=== PATIENT | female | born 1975 | race Caucasian/White ===

== ENCOUNTER 2022-06-28 16:16 | Inpatient (IN) | payer MEDICAID, OTHER ==
[~2022-06-28] VITALS: Ht 165.1 cm; Wt 97.1 kg
[~2022-06-28 16:16] MED LIST: ASPI-1856 PO; CARV12.52 PO; FURO-572 PO; LISI20TA29 PO
[2022-06-28 16:29] VITALS: BP 189/138
[2022-06-28] MEDS ORDERED: NITROGLYCERIN 0.4 MG TAB SL ONE (17:25)
--- NOTE | 2022-06-28 17:30 | NUR ---
HUSSAIN SWAB COLLECTED AND WALKED TO LAB
[2022-06-28 17:40] LABS: BASOPHILS # (AUTO) 0.1 K/uL (0.00-0.22); BASOPHILS % (AUTO) 1.3 % (0.0-2.0); EOSINOPHILS # (AUTO) 0.1 K/uL (0-0.4); EOSINOPHILS % (AUTO) 2.7 % (0.0-4.0); HEMATOCRIT 30.4 % (36-48); HEMOGLOBIN 8.9 g/dL (12.0-16.0); LYMPHOCYTES # (AUTO) 1.4 K/uL (2.5-16.5); LYMPHOCYTES % (AUTO) 25.7 % (20.5-51.1); MEAN CORPUSCULAR HEMOGLOBIN 19 pg (27-31); MEAN CORPUSCULAR HGB CONC 29 g/dL (33-37); MEAN CORPUSCULAR VOLUME 64.1 fL (80-94); MONOCYTES # (AUTO) 0.6 K/uL (0.8-1.0); MONOCYTES % (AUTO) 10.9 % (1.7-9.3); NEUTROPHILS # (AUTO) 3.3 K/uL (1.8-7.7); NEUTROPHILS % (AUTO) 59.4 % (42.2-75.2); PLATELET COUNT (AUTO) 457 K/uL (140-450); RED BLOOD CELL COUNT(AUTO) 4.74 MIL/uL (4.20-5.40); RED CELL DISTRIBUTION WIDTH 20.7 % (11.6-13.7); WHITE BLOOD COUNT (AUTO) 5.6 K/uL (4.8-10.8)
[2022-06-28 17:54] LABS: PROTHROMBIN TIME 12.7 secs (10.8-13.4)
[2022-06-28 17:55] LABS: ALBUMIN 2.3 g/dL (3.4-5.0); ANION GAP 11.7 (8-16); CARBON DIOXIDE 27.1 mmol/L (21-32); CREATININE 1.4 mg/dL (0.6-1.3); POTASSIUM 3.8 mmol/L (3.5-5.1)
--- NOTE | 2022-06-28 18:00 | NUR ---
46/F PRESENTS TO ED WITH C/O SOB UPON AMBULATION AND BILATERAL LOWER LEG SWELLING X2 MONTHS WORSENING OVER THE PAST 3 DAYS. PATIENT REPORTS HX OF CHF AND STATES SHE IS "MOSTLY COMPLIANT" WITH MEDICATION. REDNESS AND WEEPING SORES NOTED TO PATIENTS BILATERAL LOWER LEGS. PATIENT DENIES CP, FEVERS, N/V/D, ADMITS TO USE OF METH, LAST USE WAS YESTERDAY.
[2022-06-28] MEDS ORDERED: FUROSEMIDE 100 MG/10 ML VIAL IVP ONE (18:20)
[2022-06-28] MEDS ORDERED: ASPIRIN 81 MG TAB.CHEW PO ONE (18:20)
[2022-06-28] MEDS ORDERED: PRED20TA5 PO (18:42)
[2022-06-28] MEDS ORDERED: POTA10TA70 PO (18:42)
[2022-06-28] MEDS ORDERED: GLIP5TER PO (18:42)
[2022-06-28] MEDS ORDERED: ATOR40TA PO (18:42)
[2022-06-28] MEDS ORDERED: FERR75LI22 PO (18:42)
[2022-06-28] MEDS ORDERED: AMLO10TA PO (18:42)
[2022-06-28] MEDS ORDERED: APIX5TAB PO (18:42)
[2022-06-28] MEDS ORDERED: PHE25S RC (18:42)
[2022-06-28] MEDS ORDERED: SPIR50TA PO (18:42)
--- NOTE | 2022-06-28 18:42 | NUR ---
PATIENT AMBULATED TO RESTROOM WITH STEADY GAIT
[2022-06-28] MEDS ORDERED: ONDANSETRON 4 MG/2 ML VIAL IVP PRN (19:05)
[2022-06-28] MEDS ORDERED: ACETAMINOPHEN 325 MG TAB PO PRN (19:05)
[2022-06-28] MEDS ORDERED: ALBUTEROL 0.083% 2.5 MG/3 ML NEBU INH PRN (19:05)
[2022-06-28] MEDS ORDERED: DEXTROSE 50% 50 ML SYR IVP PRN (19:10)
[2022-06-28] MEDS ORDERED: INSULIN LISPRO SLIDING SCALE 100 UNITS/ML VIAL SUBQ PRN (19:10)
--- NOTE | 2022-06-28 19:23 | NUR ---
Patient noted to have existing wounds upon arrival to ER. Photos taken of wound and placed in chart. Wound covered with dressing. Physician informed.
--- NOTE | 2022-06-28 19:23 | NUR ---
Pt report given to PREM MORRIS. Transfer of care at this time.
[2022-06-28 19:28] LABS: BARBITURATE, URINE NEGATIVE ng/ml (NEG <=200); BENZODIAZEPINE, URINE NEGATIVE ng/mL (NEG <=200); CANNABINOID, URINE NEGATIVE ng/mL (NEG <=50); COCAINE, URINE NEGATIVE ng/mL (NEG <=300); OPIATE, URINE NEGATIVE ng/mL (NEG <=2000); PHENCYCLIDINE SCREEN,URINE NEGATIVE ng/mL (NEG <=25)
--- NOTE | 2022-06-28 20:20 | NUR ---
PT RESTING IN BED IS UP @ [facility] TO BATHROOM WITH STEADY GAIT. PT STATES BEING SOB WHEN WALKING. SP02 99% RESP EVEN AND UNLABORED. 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 ADMITED TO TELE. PENDING BED ASSIG. PT IS A&OX4. SKIN IS WARM AND DRY. ALEX LOWER EXT EDEMA 3+ PITTING. OPEN WOUNDS TO R LOWER LEG. PHOTOS TAKEN. 11/08 PAIN LEVEL .
--- NOTE | 2022-06-28 20:35 | NUR ---
Patient will be admitted to care of DR WOODS. Admited to TELE]. Will go to [id number]. Belongings list completed. Report to MONICA HERNANDEZ.
--- NOTE | 2022-06-28 20:49 | NUR ---
Note undone in EDM - 06/28/22 at 2126 by MNURPM PT RESTING IN BED . IS UP TO BATHROOM WITHOUT ASSIST. GAIT STEADY. PT IS A&OX4 IS ADMITED TO HOSIPTAL. PENDING BED ASSIG. EDEMA 3+ PITTING ALEX. OPEN WOUNDS TO R LOWER LEG. PHOTOS TAKEN . RESP EVEN AND UNLABORED. PT STATES FEELING SOB WHEN WHEN WALKING. SPO2 99% RA.
[2022-06-28] MEDS ORDERED: APIXABAN 2.5 MG TAB PO SCH (21:00)
[2022-06-28] MEDS ORDERED: carvediloL 6.25 MG TAB PO SCH (21:00)
[2022-06-28 21:05] VITALS: BP 188/113
--- NOTE | 2022-06-28 21:05 | NUR ---
RECEIVED PT FROM ER, REQUESTING FOR FOOD. BS CHECKED 46 MG/DL, PROVIDED FOOD. PATIENT IS AWAKE,ALERT AND ORIENTED X 4. DENIES PAIN, DENIES SHORTNESS OF BREATH. SKIN WARM AND DRY TO TOUCH. ORIENTED TO MST ROUTINE, CALL LIGHT GIVEN AND INSTRUCTIONS ON USE PROVIDED. SAFETY PRECAUTION IN PLACE, CALL LIGHT IN REACH. PT AMBULATES WITH STEADY GAIT.
--- NOTE | 2022-06-28 21:20 | NUR ---
BLOOD SUGAR RECHECKED-73 MG/DL.
[2022-06-28] MEDS: lisinopriL 20 MG TAB PO SCH (21:23)
--- NOTE | 2022-06-28 21:28 | NUR ---
The patient's care was reviewed and supervised by Lucy Jett RN.
[2022-06-28] MEDS: BLOOD GLUCOSE MONITORING 1 DEV DEV FS SCH (21:35)
[2022-06-29] VITALS: BP 152/101
--- NOTE | 2022-06-29 00:08 | NUR ---
VITAL SIGNS TAKEN AND DOCUMENTED. DENIES PAIN. CALL LIGHT WITHIN REACH.
--- NOTE | 2022-06-29 02:22 | NUR ---
ROUNDING DONE. PATIENT IS ASLEEP. NO DISTRESS NOTED. CALL LIGHT IN REACH.
[2022-06-29 04:00] VITALS: BP 124/84
[2022-06-29 06:02] LABS: ALBUMIN 2.2 g/dL (3.4-5.0); ANION GAP 9.3 (8-16); CARBON DIOXIDE 29.1 mmol/L (21-32); CREATININE 1.6 mg/dL (0.6-1.3); MAGNESIUM 1.4 mg/dL (1.8-2.4); POTASSIUM 3.4 mmol/L (3.5-5.1); TOTAL BILIRUBIN 0.8 mg/dL (0.0-1.0)
[2022-06-29 06:03] LABS: BASOPHILS # (AUTO) 0.1 K/uL (0.00-0.22); BASOPHILS % (AUTO) 1.1 % (0.0-2.0); EOSINOPHILS # (AUTO) 0.2 K/uL (0-0.4); EOSINOPHILS % (AUTO) 3.9 % (0.0-4.0); HEMATOCRIT 28.7 % (36-48); HEMOGLOBIN 8.7 g/dL (12.0-16.0); LYMPHOCYTES # (AUTO) 1.5 K/uL (2.5-16.5); LYMPHOCYTES % (AUTO) 28.8 % (20.5-51.1); MEAN CORPUSCULAR HEMOGLOBIN 19 pg (27-31); MEAN CORPUSCULAR HGB CONC 30 g/dL (33-37); MEAN CORPUSCULAR VOLUME 64.1 fL (80-94); MONOCYTES # (AUTO) 0.6 K/uL (0.8-1.0); MONOCYTES % (AUTO) 11.2 % (1.7-9.3); NEUTROPHILS # (AUTO) 2.8 K/uL (1.8-7.7); PLATELET COUNT (AUTO) 422 K/uL (140-450); RED BLOOD CELL COUNT(AUTO) 4.47 MIL/uL (4.20-5.40); RED CELL DISTRIBUTION WIDTH 20.4 % (11.6-13.7)
--- NOTE | 2022-06-29 06:23 | NUR ---
PATIENT IS ASLEEP. ALL NEEDS ATTENDED TO. NO DISTRESS NOTED. SAFETY PRECAUTIONS MAINTAINED DURING THE SHIFT, CALL LIGHT REMAINS WITHIN REACH.
[2022-06-29] MEDS: BLOOD GLUCOSE MONITORING 1 DEV DEV FS SCH ×4 (06:30→20:45)
[2022-06-29 08:00] VITALS: BP 127/60
[2022-06-29] MEDS ORDERED: MAG SULF 2000 MG/WATER PREMIX 100 ML IV ONE (08:35)
[2022-06-29] MEDS ORDERED: POTASSIUM CHLORIDE 10 MEQ TABER PO SCH (08:45)
--- NOTE | 2022-06-29 08:49 | NUR ---
PATIENT HAS BEEN SCREENED AND CATEGORIZED MODERATE NUTRITION RISK. PATIENT WILL BE SEEN WITHIN 3-5 DAYS OF ADMISSION. /07/[address] VENKAT VILL[address]O RD
[2022-06-29] MEDS ORDERED: ECOTRIN 81 MG TABEC PO SCH (09:00)
[2022-06-29] MEDS ORDERED: ATORVASTATIN 20 MG TAB PO SCH ×2 (09:00→21:00)
[2022-06-29] MEDS ORDERED: APIXABAN 2.5 MG TAB PO SCH (09:00)
[2022-06-29] MEDS: FUROSEMIDE 40 MG/4 ML VIAL IVP SCH ×2 (09:00→17:00)
[2022-06-29] MEDS: SPIRONOLACTONE 25 MG TAB PO SCH ×2 (09:00→20:37)
[2022-06-29] MEDS ORDERED: ENOXAPARIN 40 MG/0.4 ML SYR SUBQ SCH (09:00)
--- NOTE | 2022-06-29 12:08 | NUR ---
DC PLANNIN YRS OLD FEMALE PATIENT WAS ADMITTED FROM HOME WITH A DX OF CHF EXACERBATION. PT HAS A HX OF CVA AND CHF. CXR SHOWED CARDIOMEGALY. RAPID COVID TEST NEGATIVE. ADMINISTERED IV LASIX AND IV ABX CEFAZOLIN AND CONTINUED HOME MEDS. CONSULTED WITH CARDIO. DC PLAN TO GO HOME WHEN STABLE CM TO FOLLOW
[2022-06-29 16:00] VITALS: BP 99/68
[2022-06-29 20:00] VITALS: BP 126/83
--- NOTE | 2022-06-29 20:30 | NUR ---
AWAKE,ALERT AND ORIENTED X 4.RESP UNLABORED IN RA.SL.PATENT.CALL LIGHT IN REACH.HR IS SR.NO C/O PAIN OR SOB NOW.WILL CONT.MONITORING.
[2022-06-29] MEDS: ECOTRIN 81 MG TABEC PO SCH (20:41)
[2022-06-29] MEDS: carvediloL 12.5 MG TAB PO SCH ×3 (20:43→20:52)
[2022-06-29] MEDS: lisinopriL 20 MG TAB PO SCH (20:45)
[2022-06-29] MEDS ORDERED: MAG SULF 2000 MG/WATER PREMIX 50 ML IV ONE (21:24)
[2022-06-30] VITALS: BP 130/78
--- NOTE | 2022-06-30 | NUR ---
SLEEPING.HR IS SR.NO DISTRESS NOTED .
[2022-06-30 04:00] VITALS: BP 130/75
[2022-06-30] MEDS: BLOOD GLUCOSE MONITORING 1 DEV DEV FS SCH (06:36)
--- NOTE | 2022-06-30 07:20 | NUR ---
BS =82 THIS AM NO COVERAGE NEEDED.REPRT GIVEN TO AM RN.
[2022-06-30] MEDS: carvediloL 12.5 MG TAB PO SCH (09:00)
[2022-06-30] MEDS: lisinopriL 20 MG TAB PO SCH (09:00)
[2022-06-30] MEDS: ECOTRIN 81 MG TABEC PO SCH (09:03)
[2022-06-30] MEDS: FUROSEMIDE 40 MG/4 ML VIAL IVP SCH (09:04)
[2022-06-30] MEDS ORDERED: FURO40TA9 PO (12:58)
[2022-06-30] MEDS ORDERED: CEPH-588 PO (12:58)
[2022-06-30 13:45] LABS: ANION GAP 12.1 (8-16); CARBON DIOXIDE 29.7 mmol/L (21-32); CREATININE 1.8 mg/dL (0.6-1.3); POTASSIUM 3.8 mmol/L (3.5-5.1)
--- NOTE | 2022-07-02 11:30 | NUR ---
CALLED DR DEWEY'S OFFICE LOCATED AT [address] [address]. SPOKE WITH KACI WHO WAS ABLE TO HELP ME BOOK A FOLLOW UP APPOINTMENT ON 07/03/2022 AT 1430. CALLED PATIENT AMEYA AND INFORMED HER OF THE ABOVE INFORMATION.
== END 2022-06-30 16:03 | disposition home or self-care (01) | DRG 720 ==
LOC: MED 16:16 → MTU 19:05
PROVIDERS: ADMIT Internal Medicine; ATTEND Internal Medicine
DX: A41.9 Sepsis, unspecified organism (principal); I50.23 Acute on chronic systolic (congestive) heart failure; I21.A1 Myocardial infarction type 2; E43 Unspecified severe protein-calorie malnutrition; N17.9 Acute kidney failure, unspecified; I13.0 Hypertensive heart and chronic kidney disease with heart failure and stage 1 through stage 4 chronic kidney disease, or unspecified chronic kidney disease; D63.1 Anemia in chronic kidney disease; L03.115 Cellulitis of right lower limb; E11.22 Type 2 diabetes mellitus with diabetic chronic kidney disease; F15.10 Other stimulant abuse, uncomplicated; I16.1 Hypertensive emergency; J45.909 Unspecified asthma, uncomplicated; N18.9 Chronic kidney disease, unspecified; Z20.822 Contact with and (suspected) exposure to COVID-19; Z79.01 Long term (current) use of anticoagulants; Z83.3 Family history of diabetes mellitus; Z82.49 Family history of ischemic heart disease and other diseases of the circulatory system; Z79.899 Other long term (current) drug therapy; Z79.82 Long term (current) use of aspirin; Z91.14 Patient's other noncompliance with medication regimen; Z86.73 Personal history of transient ischemic attack (TIA), and cerebral infarction without residual deficits; Z68.35 Body mass index [BMI] 35.0-35.9, adult
CPT/HCPCS: 36415; 71045; 80048; 80053; 80305; 82948; 83735; 83880; 84484; 85025; 85610; 85730; 87081; 96374; 99285; J0690; J1940; J3475; J7060; Q0092

== ENCOUNTER 2022-08-02 23:30 | Inpatient (IN) | payer MEDICAID, OTHER ==
[~2022-08-02] VITALS: Ht 167.6 cm; Wt 81.6 kg
[~2022-08-02 23:30] MED LIST changes: +APIX5TAB PO; +ATOR40TA PO; +CEPH-588 PO; +FERR75LI22 PO; -FURO-572 PO; +FURO40TA9 PO; +GLIP5TER PO; +PHE25S RC; +POTA10TA70 PO; +SPIR50TA PO
[2022-08-02 23:35] VITALS: BP 156/111
--- NOTE | 2022-08-02 23:40 | NUR ---
PT TAKEN TO BED 4
--- NOTE | 2022-08-02 23:55 | NUR ---
Patient BIB by family from home. C/O Shortness of breath x today. Patient reported, woke up with shortness of breath, states " I felt drowning". PMHx: HTN, CHF Addendum: 08/03/22 at 0000 by [email or web address] Patient BIB by family from home. C/O Shortness of breath x today. Patient reported, woke up with shortness of breath, states " I felt drowning". Patient had difficulty breating every , today is worse. PMHx: HTN, CHF, CVA, Asthma Sx: Hysterectomy , C- section
--- NOTE | 2022-08-02 23:56 | NUR ---
Dr. De La Paz examining patient.
[2022-08-03] MEDS ORDERED: NITROGLYCERIN 0.4 MG TAB SL ONE (00:05)
--- NOTE | 2022-08-03 00:14 | NUR ---
COVID-19 swabs collected and sent to lab.
[2022-08-03 00:22] LABS: BASOPHILS % (AUTO) 0.9 % (0.0-2.0); EOSINOPHILS # (AUTO) 0.2 K/uL (0-0.4); EOSINOPHILS % (AUTO) 4.7 % (0.0-4.0); HEMATOCRIT 30.5 % (36-48); HEMOGLOBIN 9.1 g/dL (12.0-16.0); LYMPHOCYTES # (AUTO) 1.5 K/uL (2.5-16.5); LYMPHOCYTES % (AUTO) 29.9 % (20.5-51.1); MEAN CORPUSCULAR HEMOGLOBIN 19 pg (27-31); MEAN CORPUSCULAR HGB CONC 30 g/dL (33-37); MEAN CORPUSCULAR VOLUME 62.6 fL (80-94); MONOCYTES # (AUTO) 0.6 K/uL (0.8-1.0); MONOCYTES % (AUTO) 11.8 % (1.7-9.3); NEUTROPHILS # (AUTO) 2.6 K/uL (1.8-7.7); NEUTROPHILS % (AUTO) 52.7 % (42.2-75.2); PLATELET COUNT (AUTO) 335 K/uL (140-450); RED BLOOD CELL COUNT(AUTO) 4.88 MIL/uL (4.20-5.40)
--- NOTE | 2022-08-03 00:28 | NUR ---
X-Ray at bedside.
--- NOTE | 2022-08-03 00:37 | NUR ---
pt ambulated to restroom with urine cup, states she already urinated and did not have the urine cup with her. pt states she will try again later. avila made aware.
[2022-08-03 00:55] LABS: ALBUMIN 2.5 g/dL (3.4-5.0); ANION GAP 12.9 (8-16); CARBON DIOXIDE 25.2 mmol/L (21-32); CREATININE 1.5 mg/dL (0.6-1.3); POTASSIUM 4.1 mmol/L (3.5-5.1); TOTAL BILIRUBIN 1.9 mg/dL (0.0-1.0)
[2022-08-03] MEDS ORDERED: FUROSEMIDE 40 MG/4 ML VIAL IVP ONE (01:10)
[2022-08-03] MEDS ORDERED: ASPIRIN 81 MG TAB.CHEW PO ONE (01:10)
--- NOTE | 2022-08-03 01:48 | NUR ---
Patient will be admitted to care of Dr. Parmar. Admited to Med/Surg. Will go to room 104B. Belongings list completed. Report to MARY Huntley.
[2022-08-03 01:52] LABS: BARBITURATE, URINE NEGATIVE ng/ml (NEG <=200)
[2022-08-03 01:53] LABS: BENZODIAZEPINE, URINE NEGATIVE ng/mL (NEG <=200); CANNABINOID, URINE POSITIVE ng/mL (NEG <=50); COCAINE, URINE NEGATIVE ng/mL (NEG <=300); OPIATE, URINE NEGATIVE ng/mL (NEG <=2000); PHENCYCLIDINE SCREEN,URINE NEGATIVE ng/mL (NEG <=25)
--- NOTE | 2022-08-03 02:00 | NUR ---
PT WAS ADMITTED TO [facility] WITH DIAGNOSIS OF CHF EXACERBATION. PT IS AOX4, AMBULATORY, ABLE TO VERBALIZE NEEDS AND ABLE TO FOLLOW COMMANDS. PT IS ON ROOM AIR AND ON CARDIAC DIET. PT HAS IV ON RIGHT FOREARM GAUGE 20, SALINE LOCK. PT SKIN IS INTACT. PT WAS ORIENTED TO ROOM/HOSPITAL, BED BUTTONS AND CALL LIGHT. ALL SAFETY MEASURES IMPLEMENTED. BED IN LOW POSITION, BED WHEELS ON LOCK AND CALL LIGHT WITHIN REACH.
--- NOTE | 2022-08-03 02:29 | NUR ---
RECEIVED CALL FROM THE LAB THAT PT HAS [facility]. TRENDING DOWN.
[2022-08-03 04:00] VITALS: BP 163/110
--- NOTE | 2022-08-03 04:00 | NUR ---
NOTIFIED DR. ASTUDILLO REGARDING PT' BP OF 163/110. WILL WAIT FOR DOCTOR'S ORDER.
--- NOTE | 2022-08-03 05:23 | NUR ---
DR. ASTUDILLO ORDER HYDRALAZINE 10MG IVP EVERY 8 HRS PRN SBP>160 OR DBP>95. ORDER WAS MADE AND CARRIED OUT.
[2022-08-03] MEDS ORDERED: hydrALAZINE 20 MG/ML VIAL IVP PRN (05:30)
--- NOTE | 2022-08-03 05:51 | NUR ---
PRN HYDRALAZINE WAS GIVEN TO PT DUE TO BP-163/110 WITH PULSE OF 88. ALL SAFETY MEASURES IMPLEMENTED. BED IN LOW POSITION. BED WHEELS ON LOCK AND CALL LIGHT WITHIN REACH.
--- NOTE | 2022-08-03 07:16 | NUR ---
RECEIVED PT FROM PM NURSE FOR CONTINUITY OF CARE. PATIENT SEEN ON BED ASLEEP WITH NORMAL RISE AND FALL OF CHEST. PATIENT CARE PLAN REVIEWED AND MONITORING RESUMED.
--- NOTE | 2022-08-03 07:30 | NUR ---
PT IS STABLE. ENDORSED PT TO MORNING SHIFT NURSE FOR CONTINUITY OF CARE.
[2022-08-03 08:00] VITALS: BP 145/96
[2022-08-03] MEDS ORDERED: ONDANSETRON 4 MG/2 ML VIAL IM/IVP PRN (08:10)
[2022-08-03] MEDS ORDERED: ZOLPIDEM 5 MG TAB PO PRN (08:10)
[2022-08-03] MEDS ORDERED: ACETAMINOPHEN 325 MG TAB PO PRN (08:10)
[2022-08-03] MEDS ORDERED: POTASSIUM CHLORIDE 10 MEQ TABER PO PRN (08:10)
[2022-08-03] MEDS ORDERED: guaiFENesin DM 200/20 MG-10 ML 10 ML UDC PO PRN (08:10)
[2022-08-03] MEDS ORDERED: DOCUSATE SODIUM 100 MG GELCAP PO PRN (08:10)
--- NOTE | 2022-08-03 09:09 | NUR ---
PATIENT HAS BEEN SCREENED AND CATEGORIZED MODERATE NUTRITION RISK. PATIENT WILL BE SEEN WITHIN 3-5 DAYS OF ADMISSION. 08/06/22-08/08/[address]
[2022-08-03 09:10] LABS: FREE T4 (FREE THYROXINE) 1.25 ng/dL (0.76-1.46); MAGNESIUM 1.3 mg/dL (1.8-2.4); PHOSPHORUS 3.5 mg/dL (2.5-4.9); THYROID STIMULATING HORMONE 2.07 uIU/mL (0.34-3.74)
[2022-08-03] MEDS: PANTOPRAZOLE 40 MG TABEC PO SCH (09:57)
[2022-08-03] MEDS: lisinopriL 20 MG TAB PO SCH (09:57)
[2022-08-03] MEDS: FUROSEMIDE 40 MG/4 ML VIAL IVP SCH ×2 (09:58→18:21)
--- NOTE | 2022-08-03 10:24 | NUR ---
DC PLANNING ATTEMPTED TO MEET PT AT BEDSIDE TO COMPLETE ASSESSMENT, HOWEVER, PT STRUGGLED TO STAY AWAKE. SW REQUESTED PERMISSION TO CALL EC AND PT GRUNTED.
--- NOTE | 2022-08-03 11:30 | NUR ---
PATIENT VERBALIZES PAIN. NORCO GIVEN FOR PAIN RELIEF. REASSESSMENT SCHEDULED IN 1 HOUR.
[2022-08-03] MEDS: HYDROcodone/APAP 7.5/325 MG 1 TAB PO PRN ×2 (11:32→18:31)
[2022-08-03 12:00] VITALS: BP 127/84
[2022-08-03 16:00] VITALS: BP 120/93
--- NOTE | 2022-08-03 18:00 | NUR ---
PATIENT REQUESTS FOR PAIN MEDICATION. NORCO GIVEN.
[2022-08-03] MEDS: ATORVASTATIN 20 MG TAB PO SCH (18:21)
--- NOTE | 2022-08-03 19:20 | NUR ---
ENDORSED PT TO PM NURSE FOR CONTINUATION OF CARE. ENDORSED TO PM NURSE THAT PATIENT IS PUT ON NPO HOLD FOR TOMORROW MORNING'S ULTRASOUND ON 08/04/22.
--- NOTE | 2022-08-03 19:23 | NUR ---
RECEIVED REPORT FROM AM NURSE. PATIENT AWAKE ALERT ORIENTED VERBALLY RESPONSIVE. ABLE TO COMMUNICATE WITH HER NEEDS. NO COMPLAINTS OF PAIN AT THIS TIME. IV SITE TO RIGHT FOREARM SALINE LOCK. AMBULATORY. NEEDS ATTENDED AND MET. CALL LIGHT WITHIN REACH. SAFETY MEASURES ARE IN PLACE.
[2022-08-03 20:00] VITALS: BP 135/87
[2022-08-03] MEDS: APIXABAN 2.5 MG TAB PO SCH (20:57)
--- NOTE | 2022-08-03 20:57 | NUR ---
ALL SCHEDULED MEDICATIONS DUE ADMINISTERED.
[2022-08-03] MEDS: carvediloL 6.25 MG TAB PO SCH (20:58)
[2022-08-03] MEDS ORDERED: MAGNESIUM OXIDE 400 MG TAB PO PRN (21:20)
[2022-08-03 22:21] LABS: APPEARANCE,URINE CLEAR (CLEAR); BILIRUBIN,URINE NEGATIVE (NEGATIVE); BLOOD, URINE NEGATIVE (NEGATIVE); COLOR,URINE YELLOW (YELLOW); LEUKOCYTE ESTERASE ,URINE NEGATIVE (NEGATIVE); NITRITE, URINE NEGATIVE (NEGATIVE); UGLUCOSE NEGATIVE (NEGATIVE)
[2022-08-04] VITALS: BP 112/71
--- NOTE | 2022-08-04 02:33 | NUR ---
PATIENT COMPLAINED OF ITCHING. NOTIFIED DR. GAYTAN WITH ORDERS NOTED CARRIED OUT.
[2022-08-04] MEDS ORDERED: diphenhydrAMINE 50 MG/ML VIAL IVP PRN (03:20)
[2022-08-04] MEDS: diphenhydrAMINE 50 MG/ML VIAL IVP PRN ×2 (03:56→08:22)
[2022-08-04 04:00] VITALS: BP 159/94
[2022-08-04 06:46] LABS: HEMATOCRIT 28.2 % (36-48); HEMOGLOBIN 8.5 g/dL (12.0-16.0); MEAN CORPUSCULAR HEMOGLOBIN 19 pg (27-31); MEAN CORPUSCULAR HGB CONC 30 g/dL (33-37); MEAN CORPUSCULAR VOLUME 61.6 fL (80-94); PLATELET COUNT (AUTO) 284 K/uL (140-450); RED BLOOD CELL COUNT(AUTO) 4.57 MIL/uL (4.20-5.40); WHITE BLOOD COUNT (AUTO) 5.1 K/uL (4.8-10.8)
[2022-08-04 06:48] LABS: CARBON DIOXIDE 32.2 mmol/L (21-32); CREATININE 1.5 mg/dL (0.6-1.3); POTASSIUM 3.2 mmol/L (3.5-5.1)
--- NOTE | 2022-08-04 07:20 | NUR ---
GAVE REPORT TO MORNING NURSE FOR CONTINUITY OF CARE. PATIENT STABLE.
--- NOTE | 2022-08-04 07:30 | NUR ---
RECEIVED REPORT FROM WELDER APPRENTICE NURSE. PT IS CURRENTLY SLEEPING WITH CHEST RISING AND FALLING. NO ACUTE S/S OF DISTRESS, ALL SAFETY MEASURES IN PLACE. CALL LIGHT WITHIN REACH.
[2022-08-04 08:00] VITALS: BP 147/94
[2022-08-04] MEDS: PANTOPRAZOLE 40 MG TABEC PO SCH (08:16)
[2022-08-04] MEDS: lisinopriL 20 MG TAB PO SCH (08:18)
[2022-08-04] MEDS: carvediloL 6.25 MG TAB PO SCH ×2 (08:18→20:11)
[2022-08-04 08:19] LABS: EOSINOPHILS % (MANUAL) 11 % (0-4); LYMPHOCYTES % (MANUAL) 32 % (20-46); MONOCYTES % (MANUAL) 13 % (5-12)
[2022-08-04] MEDS: APIXABAN 2.5 MG TAB PO SCH ×2 (08:20→20:13)
[2022-08-04] MEDS: FUROSEMIDE 40 MG/4 ML VIAL IVP SCH ×2 (08:22→17:16)
[2022-08-04 12:00] VITALS: BP 118/90
[2022-08-04 12:07] LABS: T4 (THYROXINE) 6.5 ug/dL (4.5-12.0)
[2022-08-04 16:00] VITALS: BP 141/92
[2022-08-04] MEDS: ATORVASTATIN 20 MG TAB PO SCH (17:15)
--- NOTE | 2022-08-04 19:30 | NUR ---
RECEIVED PATIENT FROM AM NURSE FOR CONTINUITY OF CARE. PT IS STABLE
[2022-08-04 20:00] VITALS: BP 138/94
[2022-08-05] VITALS: BP 126/84
--- NOTE | 2022-08-05 02:00 | NUR ---
PATIENT ASLDEEP, NO DISTRESS NOTED
[2022-08-05 04:00] VITALS: BP 130/89
[2022-08-05 07:09] LABS: HEMOGLOBIN 8.7 g/dL (12.0-16.0); MEAN CORPUSCULAR HEMOGLOBIN 19 pg (27-31); MEAN CORPUSCULAR HGB CONC 30 g/dL (33-37); MEAN CORPUSCULAR VOLUME 62.1 fL (80-94); PLATELET COUNT (AUTO) 309 K/uL (140-450); RED BLOOD CELL COUNT(AUTO) 4.67 MIL/uL (4.20-5.40); RED CELL DISTRIBUTION WIDTH 21.5 % (11.6-13.7); WHITE BLOOD COUNT (AUTO) 4.9 K/uL (4.8-10.8)
[2022-08-05 07:30] LABS: CARBON DIOXIDE 31.5 mmol/L (21-32); CREATININE 1.7 mg/dL (0.6-1.3); POTASSIUM 3.5 mmol/L (3.5-5.1)
--- NOTE | 2022-08-05 07:30 | NUR ---
RECEIVED REPORT FROM SALES ACCOUNT SPECIALIST NURSE. PT IS CURRENTLY SLEEPING WITH CHEST RISING AND FALLING. NO ACUTE S/S OF DISTRESS, ALL SAFETY MEASURES IN PLACE. CALL LIGHT WITHIN REACH.
[2022-08-05 07:37] LABS: BASOPHILS % (MANUAL) 0 % (0-2); EOSINOPHILS % (MANUAL) 19 % (0-4); LYMPHOCYTES % (MANUAL) 38 % (20-46); MONOCYTES % (MANUAL) 11 % (5-12)
[2022-08-05 08:00] VITALS: BP 138/86
[2022-08-05] MEDS: APIXABAN 2.5 MG TAB PO SCH (08:43)
[2022-08-05] MEDS: PANTOPRAZOLE 40 MG TABEC PO SCH (08:43)
[2022-08-05] MEDS: lisinopriL 20 MG TAB PO SCH (08:44)
[2022-08-05] MEDS: carvediloL 6.25 MG TAB PO SCH (08:44)
[2022-08-05] MEDS ORDERED: FUROSEMIDE 40 MG/4 ML VIAL IVP SCH (09:00)
[2022-08-05] MEDS ORDERED: diphenhydrAMINE 50 MG/ML VIAL IVP PRN (09:23)
--- NOTE | 2022-08-05 10:02 | NUR ---
PT HAS BECOME AGITATED AND IS STATING "SHE DOESN'T KNOW WHY SHE HAS TO BE HERE IF SHE IS JUST LAYING THERE". I OFFERED TO CHANGE HER FOAM BANDAGES ON HER LOWER BILATERAL EXTREMITIES. SHE SAID NO, SHE WILL DO IT HERSELF. I ALSO ASKED IF SHE IS STILL FEELING ITCHY AND IF SHE NEEDS BENEDRYL, SHE SAID NO. SHE DOES NOT NEED BENEDRYL AND IS NOT ITCHY.
[2022-08-05] MEDS ORDERED: CARV6.252 PO (11:20)
[2022-08-05] MEDS ORDERED: APIX2.5 PO (11:20)
[2022-08-05 12:00] VITALS: BP 126/75
--- NOTE | 2022-08-05 13:09 | NUR ---
REVIEWED DISCHARGE INSTRUCTIONS WITH PT AND PT SIGNED DISCHARGE DOCUMENTATION. PT CONFIRMS UNDERSTANDING AND HAS NO ADDITIONAL QUESTIONS. PT IS CALLING FOR FAMILY TO COME PICK HER UP.
--- NOTE | 2022-08-05 13:36 | NUR ---
PATIENT IS BEING WHEELCHAIRED OUT BY ALEXANDREA RN IN STABLE CONDITION.
== END 2022-08-05 14:49 | disposition home or self-care (01) | DRG 194 ==
LOC: MED 23:30 → MTU 08-03 01:21
PROVIDERS: ADMIT Family Medicine; ATTEND Family Medicine
DX: I13.0 Hypertensive heart and chronic kidney disease with heart failure and stage 1 through stage 4 chronic kidney disease, or unspecified chronic kidney disease (principal); R65.11 Systemic inflammatory response syndrome (SIRS) of non-infectious origin with acute organ dysfunction; G92.9 Unspecified toxic encephalopathy; E44.0 Moderate protein-calorie malnutrition; N17.9 Acute kidney failure, unspecified; E11.22 Type 2 diabetes mellitus with diabetic chronic kidney disease; I24.8 Other forms of acute ischemic heart disease; I50.43 Acute on chronic combined systolic (congestive) and diastolic (congestive) heart failure; R74.01 Elevation of levels of liver transaminase levels; F15.10 Other stimulant abuse, uncomplicated; N18.31 Chronic kidney disease, stage 3a; Z20.822 Contact with and (suspected) exposure to COVID-19; Z86.73 Personal history of transient ischemic attack (TIA), and cerebral infarction without residual deficits; Z90.710 Acquired absence of both cervix and uterus; Z79.82 Long term (current) use of aspirin; Z79.01 Long term (current) use of anticoagulants; Z79.899 Other long term (current) drug therapy; Z82.49 Family history of ischemic heart disease and other diseases of the circulatory system; Z83.3 Family history of diabetes mellitus; Z68.29 Body mass index [BMI] 29.0-29.9, adult
CPT/HCPCS: 36415; 71045; 76700; 80048; 80053; 80305; 81003; 82150; 83036; 83690; 83735; 83880; 84100; 84436; 84439; 84443; 84479; 84484; 85025; 85610; 85730; 87081; 96374; 99285; J0360; J1200; J1940; Q0092